=== PATIENT | female | born 1965 | race Caucasian/White ===

== ENCOUNTER 2022-09-13 16:01 | Emergency (ER) | payer BC ==
[~2022-09-13 16:01] MED LIST: Iopamidol 370 76% 100 ML VIAL ONE
[2022-09-13 16:53] LABS: #Eosinphils 0.1 10x3/uL (0.0-0.5); #Monocytes 0.8 10x3/uL (0.0-1.1); #Neutrophils 4.8 10x3/uL (1.5-8.4); %Basophils 0.4 % (0.0-2.0); %Lymphocytes 29.9 % (18.0-47.0); %Monocytes 9.4 % (0.0-10.0); %Neutrophils 58.9 % (40.0-75.0); Hemoglobin 12.5 g/dL (12.0-15.5); Mean Corpuscular HGB CONC 33.4 g/dL (32.0-36.0); Mean Corpuscular Hemoglobin 29.9 pg (27.0-33.0); Mean Corpuscular Volume 89.5 fl (81.6-98.3); Platelet Count 271 10x3/uL (150-450); RBC Distribution Width 13.5 % (11.5-14.5); Red Blood Cell (RBC) Count 4.18 10x6/uL (3.90-5.03); White Blood Cell (WBC) Count 8.1 10x3/uL (3.5-10.5)
[2022-09-13 17:03] LABS: ALT (SGPT) 18 U/L (8-55); AST (SGOT) 20 U/L (5-34); Albumin 4.4 g/dL (3.5-5.0); Alkaline Phosphatase 83 U/L (40-110); Anion Gap 13 mmol/L (10-20); BUN (Urea Nitrogen) 15 mg/dL (9.8-20.1); Bilirubin, Total 0.4 mg/dL (0.2-1.2); Calc. Creatinine Clearance 0 mL/min (70-130); Calcium 9.5 mg/dL (7.8-10.44); Carbon Dioxide 27 mmol/L (22-29); Chloride 101 mmol/L (98-107); Estimated GFR 82; Globulin 2.7 g/dL (2.4-3.5); Glucose 93 mg/dL (70-105); Potassium 3.8 mmol/L (3.5-5.1); Protein, Total 7.1 g/dL (6.0-8.3); Sodium 137 mmol/L (136-145)
[2022-09-13] MEDS ORDERED: Aspirin Chewable 81 MG TAB ONE (17:23)
== END 2022-09-13 18:58 | disposition home or self-care (01) ==
LOC: CSHERS 16:01
DX: R07.89 Other chest pain (principal)
CPT/HCPCS: 71045; 71275; 80053; 84484; 85025; 93005; Q9967